=== PATIENT | female | born 1975 | race Caucasian/White ===

== ENCOUNTER 2018-11-03 16:13 | Emergency (ER) | payer SELFPAY ==
--- NOTE | 2018-11-03 16:43 | ER Document Report ---
ED Medical Screen (RME) - General Chief Complaint: Foot Pain Stated Complaint: RIGHT FOOT PAIN Time Seen by Provider: 11/03/18 16:39 Mode of Arrival: Ambulatory Information source: Patient Notes: Patient presents emergency department with complaints that top of her right foot hurting with swelling. Reports started Thursday morning. Denies trauma. Reports she wore tennis shoes on Thursday which she usually does not wear but denies injury. Slight swelling noted to the top of her foot no obvious abscess. Good pedal pulse good cap refill I have greeted and performed a rapid initial assessment of this patient. A comprehensive ED assessment and evaluation of the patient, analysis of test results and completion of the medical decision making process will be conducted by additional ED providers. Dictation of this chart was performed using voice recognition software; therefore, there may be some unintended grammatical errors. - Related Data Allergies/Adverse Reactions: morphine Allergy (Verified 11/03/18 16:38) Physical Exam - Vital signs Vitals: Temp Pulse Resp BP Pulse Ox 98.0 F 100 18 147/89 H 99 11/03/18 16:27 11/03/18 16:27 11/03/18 16:27 11/03/18 16:27 11/03/18 16:27 Course - Vital Signs Vital signs: Temp Pulse Resp BP Pulse Ox 98.0 F 100 18 147/89 H 99 11/03/18 16:27 11/03/18 16:27 11/03/18 16:27 11/03/18 16:27 11/03/18 16:27
--- NOTE | 2018-11-03 17:15 | RADIOLOGY REPORT (SQ) ---
EXAM DESCRIPTION: FOOT RIGHT COMPLETE COMPLETED DATE/TIME: 11/03/2018 4:57 pm REASON FOR STUDY: pain swelling COMPARISON: None. NUMBER OF VIEWS: Three views. TECHNIQUE: AP, lateral and oblique radiographic images acquired of the right foot. LIMITATIONS: None. FINDINGS: MINERALIZATION: Normal. BONES: No acute fracture or dislocation. No worrisome bone lesions. JOINTS: No effusions. SOFT TISSUES: No soft tissue swelling. No foreign body. OTHER: No other significant finding. IMPRESSION: NEGATIVE STUDY OF THE RIGHT FOOT. NO RADIOGRAPHIC EVIDENCE OF ACUTE INJURY. TECHNICAL DOCUMENTATION: JOB ID: [id number] [employer]- All Rights Reserved Reading location - IP/workstation name: [email or web address]
[2018-11-03] MEDS ORDERED: CEPHALEXIN 500 MG CAPSULE PO ONE (18:13)
[2018-11-03] MEDS ORDERED: HYDROCODONE/ACETAMINOPHEN 5-325 MG TABLET PO ONE (18:13)
--- NOTE | 2018-11-03 18:17 | ER Document Report ---
HPI - HPI Patient complains to provider of: Right foot pain Time Seen by Provider: 11/03/18 16:39 Onset/Duration: Persistent Quality of pain: Achy Pain Level: 3 Context: Patient presents with right foot pain for the past 3 days. Patient denies any injury. Patient denies any fever. Patient complains of pain with ambulation. Associated Symptoms: Other - Right foot pain. denies: Fever Exacerbated by: Standing, Movement, Walking Relieved by: Denies Similar symptoms previously: No Recently seen / treated by doctor: No - ROS ROS below otherwise negative: Yes Systems Reviewed and Negative: Yes All other systems reviewed and negative - CONSTITUTIONAL Constitutional: DENIES: Fever - GASTROINTESTINAL Gastrointestinal: DENIES: Nausea - MUSCULOSKELETAL Musculoskeletal: REPORTS: Extremity pain, Swelling - DERM Skin Color: Normal Skin Problems: None Past Medical History - General Information source: Patient - Social History Smoking Status: Current Every Day Smoker Smoking Education Provided: Yes Frequency of alcohol use: Rare Drug Abuse: None Occupation: fast food server Lives with: Family Family History: Reviewed & Not Pertinent Patient has suicidal ideation: No Patient has homicidal ideation: No - Past Medical History Cardiac Medical History: Reports: Hx Hypertension Surgical Hx: Negative Vertical Provider Document - CONSTITUTIONAL Agree With Documented VS: Yes Exam Limitations: No Limitations General Appearance: WD/WN, No Apparent Distress - HEENT HEENT: Atraumatic, Normocephalic - NECK Neck: Normal Inspection - RESPIRATORY Respiratory: Breath Sounds Normal, No Respiratory Distress - CARDIOVASCULAR Cardiovascular: Regular Rate, Regular Rhythm Pulses: Normal: Dorsalis pedis - MUSCULOSKELETAL/EXTREMETIES Musculoskeletal/Extremeties: MAEW, FROM, Tender - Right foot tenderness over lateral midfoot area. Patient with what appears to be a scabbed lesion with surrounding erythema, no purulence, no concern for abscess, Edema - 1+. negative: Eccymosis - NEURO Level of Consciousness: Awake, Alert, Appropriate Motor/Sensory: No Motor Deficit - DERM Integumentary: Warm, Dry. negative: Abscess Course - Re-evaluation Re-evalutation: 11/03/18 18:15 Patient with possible insect bite versus minor trauma to the foot with surrounding erythema worrisome for cellulitis at this time. No concern for abscess. No obvious foreign body noted on x-ray. - Vital Signs Vital signs: Temp Pulse Resp BP Pulse Ox 98.0 F 100 18 147/89 H 99 11/03/18 16:27 11/03/18 16:27 11/03/18 16:27 11/03/18 16:27 11/03/18 16:27 - Diagnostic Test Radiology reviewed: Image reviewed, Reports reviewed Discharge - Discharge Clinical Impression: Cellulitis of foot Condition: Stable Disposition: HOME, SELF-CARE Instructions: Cellulitis ([facility]), Cephalexin ([facility]) Additional Instructions: Return immediately for any new or worsening symptoms Followup with your primary care provider, call tomorrow to make a followup appointment Prescriptions: Cephalexin Monohydrate [Keflex 500 mg Capsule] 500 mg PO Q6H 5 Days capsule Hydrocodone/Acetaminophen [Kouts 5-325 mg Tablet] 1 tab PO Q6 PRN #6 tablet PRN Reason: Forms: Smoking Cessation Education, Return to Work Referrals: MAGGIE MAURICIO MD [Primary Care Provider] - Follow up as needed
[2018-11-03 19:00] VITALS: BP 148/89
== END 2018-11-03 19:04 | disposition home or self-care (01) ==
LOC: ER 16:13
DX: L03.115 Cellulitis of right lower limb (principal); M79.671 Pain in right foot; M79.89 Other specified soft tissue disorders; F17.200 Nicotine dependence, unspecified, uncomplicated
CPT/HCPCS: 99283